=== PATIENT | female | born 1985 ===

== ENCOUNTER 2021-10-01 17:22 | Inpatient (IN) | payer OTHER, SELFPAY ==
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
[2021-10-01 17:31] VITALS: BMI 39.2
[2021-10-01] MEDS: hydrOXYzine HCL 25 MG TABLET PO (19:58)
[2021-10-01 20:31] VITALS: BP 130/78; PULSE 68; TEMP 36.4
[2021-10-01] MEDS: Divalproex Sodium Sprinkles 125 MG CAP.DR.SPR 250 MG PO (21:18)
[2021-10-01] MEDS: Loperamide HCl 2 MG CAPSULE PO (21:19)
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
[2021-10-01] MEDS: cephALEXin 500 MG CAPSULE PO (22:18)
[2021-10-02 06:00] VITALS: BP 126/76; PULSE 86; RESP 18; TEMP 36.3; O2SAT 98
[2021-10-02] MEDS: cephALEXin 500 MG CAPSULE PO ×4 (06:17→20:12)
[2021-10-02] MEDS: Divalproex Sodium Sprinkles 125 MG CAP.DR.SPR 250 MG PO ×2 (08:45→20:11)
[2021-10-02 08:47] LABS: Estimated Average Glucose 103 mg/dL; Hemoglobin A1c % 5.2 %
[2021-10-02 08:59] LABS: Alanine Aminotransferase 12 U/L (0-31); Albumin Level 3.8 g/dL (3.5-5.0); Alkaline Phosphatase 65 U/L (39-117); Anion Gap 12 (12-20); Aspartate Amino Transferase 11 U/L (5-31); Bilirubin Total 0.4 mg/dL (0.0-1.0); Blood Urea Nitrogen 14 mg/dL (9-16); Calcium 8.9 mg/dL (8.4-10.2); Carbon Dioxide 27 mmol/L (22-29); Chloride 105 mmol/L (96-108); Cholesterol 150 mg/dL; Creatinine Clr Calc Pharmacy 105.8; Estimated Glomerular Filt Rate > 60; Glucose Fasting 88 mg/dL (60-99); HDL Cholesterol 36 mg/dL; LDL Cholesterol Calculated 103 mg/dl; Potassium 4.1 mmol/L (3.3-5.1); Sodium 140 mmol/L (135-145); Total Protein 7.1 g/dL (6.5-8.0); Triglycerides 55 mg/dL
[2021-10-02 09:18] LABS: Free T4 (Free Thyroxine) 0.98 ng/dL (0.71-1.85)
[2021-10-02 09:19] LABS: Thyroid Stimulating Hormone 1.29 uIU/mL (0.32-4.0)
[2021-10-02] MEDS: hydrOXYzine HCL 50 MG TABLET PO (10:31)
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
[2021-10-02] MEDS: Lurasidone HCl 20 MG TABLET 60 MG PO (17:47)
[2021-10-02 18:42] VITALS: BP 128/73; PULSE 76; TEMP 36.5
[2021-10-02] MEDS: guaiFENesin DM 100/10/5 ML 5 ML SYRUP 10 ML PO (20:12)
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
[2021-10-03] MEDS: cephALEXin 500 MG CAPSULE PO ×4 (05:19→22:27)
[2021-10-03 06:00] VITALS: BP 128/79; PULSE 91; TEMP 36.4; O2SAT 97
[2021-10-03] MEDS: guaiFENesin DM 100/10/5 ML 5 ML SYRUP 10 ML PO (08:20)
[2021-10-03] MEDS: Divalproex Sodium Sprinkles 125 MG CAP.DR.SPR 250 MG PO ×2 (08:20→20:13)
[2021-10-03] MEDS: hydrOXYzine HCL 50 MG TABLET PO ×2 (09:44→17:59)
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
[2021-10-03] MEDS: guaiFENesin DM 100/10/5 ML 5 ML SYRUP PO ×2 (14:38→20:13)
[2021-10-03] MEDS: Lurasidone HCl 20 MG TABLET 60 MG PO (18:37)
[2021-10-03 19:55] VITALS: BP 99/55; PULSE 72; TEMP 36.1
[2021-10-04] MEDS: cephALEXin 500 MG CAPSULE PO ×4 (04:25→21:31)
[2021-10-04 07:33] LABS: Folate 8.9 ng/mL (> or = 4.0); Vitamin B12 368 pg/mL (200-900)
[2021-10-04] MEDS: guaiFENesin DM 100/10/5 ML 5 ML SYRUP PO ×3 (10:26→21:31)
[2021-10-04] MEDS: Divalproex Sodium Sprinkles 125 MG CAP.DR.SPR 250 MG PO ×3 (10:26→21:31)
[2021-10-04] MEDS: hydrOXYzine HCL 50 MG TABLET PO ×2 (10:28→18:38)
[2021-10-04] MEDS: Lurasidone HCl 20 MG TABLET 60 MG PO (17:11)
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
[2021-10-04 18:00] VITALS: BP 117/56; PULSE 86; TEMP 36.6; O2SAT 99
--- NOTE | 2021-10-05 | ECG_ITS ---
Test Reason : CHEST PAIN Blood Pressure : / mmHG Vent. Rate : 078 BPM Atrial Rate : 078 BPM P-R Int : 124 ms QRS Dur : 092 ms QT Int : 388 ms P-R-T Axes : -01 063 042 degrees QTc Int : 442 ms Normal sinus rhythm Normal ECG No previous ECGs available Referred By: Tiana Hartman Electronically Signed By:JOSE L BEAN
[2021-10-05] MEDS: cephALEXin 500 MG CAPSULE PO ×4 (05:45→22:14)
[2021-10-05 06:00] VITALS: BP 133/83; PULSE 78; RESP 17; TEMP 35.8; O2SAT 100
[2021-10-05] MEDS: Divalproex Sodium Sprinkles 125 MG CAP.DR.SPR 250 MG PO ×3 (09:20→22:13)
[2021-10-05] MEDS: guaiFENesin DM 100/10/5 ML 5 ML SYRUP PO ×3 (09:20→22:10)
[2021-10-05] MEDS: hydrOXYzine HCL 50 MG TABLET PO ×2 (09:21→22:10)
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
[2021-10-05] MEDS: Lurasidone HCl 20 MG TABLET 60 MG PO (17:45)
[2021-10-05 18:00] VITALS: BP 135/90; PULSE 83; RESP 18; TEMP 36.4; O2SAT 100
[2021-10-05] MEDS: QUEtiapine Fumarate 100 MG TABLET PO (22:10)
[2021-10-06] MEDS: cephALEXin 500 MG CAPSULE PO ×4 (05:41→21:02)
[2021-10-06] MEDS: Divalproex Sodium Sprinkles 125 MG CAP.DR.SPR 250 MG PO ×3 (09:11→21:02)
[2021-10-06] MEDS: guaiFENesin DM 100/10/5 ML 5 ML SYRUP PO (09:11)
[2021-10-06] MEDS: hydrOXYzine HCL 50 MG TABLET PO (09:47)
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
[2021-10-06] MEDS: Lurasidone HCl 20 MG TABLET 60 MG PO (17:33)
[2021-10-06 18:00] VITALS: BP 132/88; PULSE 92; TEMP 36.2; O2SAT 97
[2021-10-06] MEDS: QUEtiapine Fumarate 200 MG TABLET PO (21:02)
[2021-10-07] MEDS: Divalproex Sodium Sprinkles 125 MG CAP.DR.SPR 250 MG PO (08:52)
[2021-10-07] MEDS: cephALEXin 500 MG CAPSULE PO (08:52)
[2021-10-07] MEDS: QUEtiapine Fumarate 200 MG TABLET PO (08:53)
--- NOTE | 2021-10-17 18:52 | P.DS_ITS ---
DS: Providers Provider Date of Service: 10/07/21 Date of admission: 10/01/21 17:22 Date of discharge: 10/07/21 Primary care physician: Lyudmila Physician Admitting clinician: Swetha Condon Attending physician on admission: Solomon Soto Consults: 10/01/21 17:36 Consult to Hospitalist Routine Consulting Provider: Hospitalist Reason For Exam: routine 10/01/21 17:49 Consult to Hospitalist Routine Consulting Provider: Hospitalist Reason For Exam: New admit from [facility] 10/05/21 14:30 Consult to Hospitalist Routine Consulting Provider: Hospitalist Reason For Exam: L sided arm, chest, rib pain, edema Attending physician on discharge: Solomon Soto Discharging clinician: Tiana Hartman DS: Diagnosis Discharge Diagnosis (1) MDD (major depressive disorder), recurrent, severe, with psychosis: Status: Acute (2) Post traumatic stress disorder (PTSD): Status: Acute (3) Cocaine use disorder: Status: Acute DS: Medications Discharge Medications Home Medications: Previous Rx's Medication Instructions Recorded albuterol sulfate 90 mcg/actuation 2 puff inhalation 6XD PRN 10/07/21 aerosol inhaler (Ventolin HFA) shortness of breath or wheezing #8.5 grams cephalexin 500 mg capsule 500 mg PO QID #28 caps 10/07/21 divalproex 250 mg tablet,delayed 250 mg PO TID #21 tabs 10/07/21 release (Depakote) lurasidone 60 mg tablet (Latuda) 60 mg PO DAILY #7 tabs 10/07/21 quetiapine 100 mg tablet (Seroquel) 100 mg PO BEDTIME #7 tabs 10/07/21 Mental Status Exam Mental Status Exam Patient Appearance: Appropriate Patient Orientation: Person, Place, Time and Situation Level of Consciousness: Alert Patient Behavior: Talkative and Good Eye Contact Mood Description: Labile Affect Description: Labile Patient Cognition Impaired: No Ability to Follow Directions: Good Speech Pattern: Spontaneous Speech Memory Description: Intact Hallucinations: None Delusions: Not Present Perceptual Disturbances: Depersonalization and Derealization Thought Process: Intact and Goal Oriented Thought Content: positive for Intact and positive for Goal Oriented Depressive Symptoms: Increased Anxiety, Increased Irritability and Difficulty Concentrating Judgement: Good Data Imaging Diagnostic Imaging Impressions Cervical Spine X-Ray 10/05/21 14:05 IMPRESSION: Mild degenerative changes and mild thoracolumbar levoscoliosis without other significant abnormality. Lumbar Spine X-Ray 10/05/21 14:05 IMPRESSION: Mild degenerative changes and mild thoracolumbar levoscoliosis without other significant abnormality. Ribs w/Chest X-Ray 10/05/21 14:05 IMPRESSION: Unremarkable examination. Shoulder X-Ray 10/05/21 14:05 IMPRESSION: Unremarkable left shoulder. Thoracic Spine X-Ray 10/05/21 14:05 IMPRESSION: Mild degenerative changes and mild thoracolumbar levoscoliosis without other significant abnormality. Chest CT 10/06/21 14:52 IMPRESSION: 4 mm right upper lobe pulmonary nodule. This may represent a subpleural lymph node. According to the UPDATED 2017 Fleischner Society recommendations, the advised follow-up imaging for less than 6 mm solid nodule: Low risk, no chest CT follow-up and high risk, optional chest CT follow-up in one year. Small esophageal hernia. Fleischner guidelines were followed. DS: Summary Hospital Course Hospital Course: Admission to adult psychiatry for exacerbation of PTSD, recurrent major depression, cocaine use disorder, asthma. Depakote, Seroquel and Latuda were initiated. Pt struggled with the admission. She is not from this area, however, has had admissions in other states and had much feedback about lack of resources in [place], different protocols she did not agree with and treatment conflicts. She was offered continuing treatment with [facility] programs but refused and chose to discharge outright. Group Home resources were provided. Pt was encouraged to call/return should she find the team could be helpful in connecting her with resources in the community. A limited supply of medications were sent to the local pharmacy as she is a relapse risk given refusal of resources. Time spent discussing smoking cessation with patient: 3 to 10 minutes Status at Discharge Functional status at discharge: independent ambulation Overall status at discharge: patient is back to baseline Time Spent with Patient Time attestation: Total time spent providing and/or coordinating discharge services: Time spent: Greater than 30 minutes Specific discharge activities: 40 Discharge Plan Discharge Patient Disposition: Xfer Other Discharge Diagnosis: PTSD Recurrent Major Depression Cocaine use Disorder Asthma Referrals: [facility] CSS program [Other] - 10/07/21 10:30 am (You will discharge to [facility] on 10/07/21 for their Clinical Stabilization Services. The CSS program will assign you a long term care social worker and MD and they will work with you to coordinate outpatient therapy, psychiatry and PCP services. ([facility] declined bed option at [facility] program for 10/07/21.)) [facility] [Other] - 10/07/21 (Follow up with your leather case finisher Sheri Conteh and Apparel Designer Rehan Lancaster at [facility] as needed to access resources in community. ) Physician,Unknown J [Primary Care Provider] - 1 Week Discharge Medications: New cephalexin 500 mg capsule 500 mg PO QID Qty: 28 1RF albuterol sulfate [Ventolin HFA] 90 mcg/actuation HFA aerosol inhaler 2 puff inhalation 6XD PRN (Reason: shortness of breath or wheezing) Qty: 8.5 0RF divalproex [Depakote] 250 mg tablet,delayed release (DR/EC) 250 mg PO TID Qty: 21 1RF Latuda 60 mg tablet 60 mg PO DAILY Qty: 7 1RF Rx Instructions: must administer with food (at least 350 calories) quetiapine [Seroquel] 100 mg tablet 100 mg PO BEDTIME Qty: 7 0RF Discharge Orders: Discharge Order (Routine); Ordered 10/07/21 Ordered By: Tiana Hartman Diet: Advance to usual diet Activity on Discharge: As tolerated Stand Alone Forms: Patient Portal Discharge page, Community Support Care Plan Goals: Mood Stabilization Sobriety Health Concerns: PTSD Major Depression Cocaine Use Disorder Asthma Plan of Treatment: Attend follow up appointments Take medications as directed You should have a depakote level the week of October 18, 2021. Please call if you would like to have that done with [facility] [phone] You have chosen not to accept residential treatment offer for [facility]. You have asked to be discharged outright and decline referrals We will provide a list of available shelters for your reference. [facility] is an organization in [place] which offers alf, case mgt, housing assist, and health care services. They are located at [address] [place] [address] should you change your mind about participating in services. Assessment: non suicidal, non psychotic Discharge Date/Time: 10/07/21 11:30
== END 2021-10-07 11:30 | disposition other institution (70) | DRG 751 ==
PROVIDERS: Registered Nurse; Social Worker; Admitting Provider Psychiatry & Neurology Psychiatry; Visit Provider Clinical Nurse Specialist Psychiatric/Mental Health, Adult
DX: F33.3 Major depressive disorder, recurrent, severe with psychotic symptoms (principal); R45.851 Suicidal ideations; E66.9 Obesity, unspecified; F14.10 Cocaine abuse, uncomplicated; J45.20 Mild intermittent asthma, uncomplicated; Z56.0 Unemployment, unspecified; F41.9 Anxiety disorder, unspecified; F43.10 Post-traumatic stress disorder, unspecified; Z91.52 Personal history of nonsuicidal self-harm; Z68.39 Body mass index [BMI] 39.0-39.9, adult; Z71.3 Dietary counseling and surveillance; Z79.899 Other long term (current) drug therapy
CPT/HCPCS: 36415; 71111; 71250; 72040; 72072; 72100; 73020; 80053; 80061; 82607; 82746; 83036; 83735; 84439; 84443; 93005